=== PATIENT | female | born 1985 ===

== ENCOUNTER 2021-02-03 12:40 | Emergency (ER) | payer SELFPAY ==
[~2021-02-03] VITALS: Ht 154.9 cm; Wt 75.0 kg
[2021-02-03 12:41] VITALS: TEMP 98.6
[2021-02-03] MEDS ORDERED: NORCO 325 MG-51 TAB PO (14:36)
[2021-02-03 14:51] VITALS: BP 131/97; PULSE 75
== END 2021-02-03 14:53 | disposition home or self-care (01) ==
LOC: COL.ER 12:40
DX: S00.83XA Contusion of other part of head, initial encounter (principal); Y04.8XXA Assault by other bodily force, initial encounter
CPT/HCPCS: J1170; J2405; J7030

== ENCOUNTER 2021-02-06 10:45 | Emergency (ER) | payer SELFPAY ==
[~2021-02-06] VITALS: Ht 154.9 cm; Wt 75.0 kg
[~2021-02-06 10:45] MED LIST: NORCO 325 MG-51 TAB PO
[2021-02-06] MEDS ORDERED: NORCO 325 MG-51 TAB PO (11:20)
[2021-02-06 11:31] VITALS: BP 148/67; PULSE 66; TEMP 98.3
== END 2021-02-06 11:32 | disposition home or self-care (01) ==
LOC: COL.ER 10:45
DX: S05.12XA Contusion of eyeball and orbital tissues, left eye, initial encounter (principal); R68.84 Jaw pain; Y04.8XXA Assault by other bodily force, initial encounter